=== PATIENT | male | born 1950 | race Caucasian/White ===

== ENCOUNTER → 2016-07-05 | Outpatient (CLI) | payer OTHER ==
[~2016-07-05] MED LIST: ADVIN25/60 INH; ALL300 PO; ALPR-411 PO; ASPEC325 PO; CYCL25CA5 PO; FRS/40 PO; LISI20TA3 PO; METO5TAB25 PO; MTR500 PO; PRD20 PO; SIMV40TA2 PO; TRIA1SPR4
[2016-07-05 13:33] LABS: HEMATOCRIT 34.9 % (42-52)
[2016-07-05 14:53] LABS: BLOOD UREA NITROGEN 64 mg/dl (7-18); BUN/CREATININE RATIO 21.9 (10-20); CALCIUM 8.5 mg/dl (8.5-10.1); CARBON DIOXIDE 18 mmol/L (21-32); CHLORIDE 113 mmol/L (98-107); GLUCOSE 130 mg/dl (70-99); POTASSIUM 4.2 mmol/L (3.5-5.1); SODIUM 144 mmol/L (136-145)
[2016-07-05 14:54] LABS: PHOSPHORUS 3.1 mg/dl (2.5-4.9)
[2016-07-05 19:00] LABS: URINE PROTIEN/CREAT RATIO 3.3 (0-0.2); URINE TOTAL PROTEIN 304.3 mg/dl (0-11.9)
== END | disposition home or self-care (01) ==
LOC: C.LABMFLN 09:59
PROVIDERS: ATTEND Internal Medicine
DX: N28.9 Disorder of kidney and ureter, unspecified (principal); N04.9 Nephrotic syndrome with unspecified morphologic changes

== ENCOUNTER → 2016-07-19 | Outpatient (CLI) | payer OTHER ==
[2016-07-19 17:48] LABS: HEMATOCRIT 35.9 % (42-52)
[2016-07-19 18:01] LABS: BLOOD UREA NITROGEN 69 mg/dl (7-18); BUN/CREATININE RATIO 19.6 (10-20); CALCIUM 8.5 mg/dl (8.5-10.1); CARBON DIOXIDE 20 mmol/L (21-32); CHLORIDE 112 mmol/L (98-107); GLUCOSE 127 mg/dl (70-99); POTASSIUM 4.6 mmol/L (3.5-5.1); SODIUM 144 mmol/L (136-145)
[2016-07-19 18:02] LABS: PHOSPHORUS 3.1 mg/dl (2.5-4.9)
== END | disposition home or self-care (01) ==
LOC: C.LABMFLN 10:12
PROVIDERS: ATTEND Internal Medicine
DX: N05.2 Unspecified nephritic syndrome with diffuse membranous glomerulonephritis (principal)

== ENCOUNTER → 2016-07-20 | Outpatient (CLI) | payer OTHER ==
[2016-07-20 13:53] LABS: URINE PROTIEN/CREAT RATIO 2.7 (0-0.2); URINE TOTAL PROTEIN 151.1 mg/dl (0-11.9)
== END | disposition home or self-care (01) ==
LOC: C.LABMFLN 09:20
PROVIDERS: ATTEND Internal Medicine
DX: N05.2 Unspecified nephritic syndrome with diffuse membranous glomerulonephritis (principal)

== ENCOUNTER → 2016-08-16 | Outpatient (CLI) | payer OTHER ==
[2016-08-16 13:33] LABS: HEMATOCRIT 36.4 % (42-52)
[2016-08-16 13:45] LABS: BLOOD UREA NITROGEN 56 mg/dl (7-18); BUN/CREATININE RATIO 20.8 (10-20); CALCIUM 8.7 mg/dl (8.5-10.1); CARBON DIOXIDE 20 mmol/L (21-32); CHLORIDE 115 mmol/L (98-107); GLUCOSE 125 mg/dl (70-99); POTASSIUM 4.8 mmol/L (3.5-5.1); SODIUM 146 mmol/L (136-145)
[2016-08-16 13:46] LABS: PHOSPHORUS 4.2 mg/dl (2.5-4.9)
[2016-08-16 13:48] LABS: URINE PROTIEN/CREAT RATIO 3.2 (0-0.2); URINE TOTAL PROTEIN 109.5 mg/dl (0-11.9)
== END | disposition home or self-care (01) ==
LOC: C.LABMFLN 12:01
PROVIDERS: ATTEND Internal Medicine
DX: N28.9 Disorder of kidney and ureter, unspecified (principal); N04.9 Nephrotic syndrome with unspecified morphologic changes

== ENCOUNTER → 2016-09-14 | Outpatient (CLI) | payer OTHER ==
[2016-09-14 13:40] LABS: HEMATOCRIT 37.6 % (42-52)
[2016-09-14 13:58] LABS: BLOOD UREA NITROGEN 62 mg/dl (7-18); BUN/CREATININE RATIO 20.5 (10-20); CALCIUM 8.7 mg/dl (8.5-10.1); CARBON DIOXIDE 22 mmol/L (21-32); CHLORIDE 114 mmol/L (98-107); GLUCOSE 85 mg/dl (70-99); POTASSIUM 5.2 mmol/L (3.5-5.1); SODIUM 144 mmol/L (136-145)
[2016-09-14 13:59] LABS: PHOSPHORUS 4.2 mg/dl (2.5-4.9)
[2016-09-14 14:15] LABS: URINE PROTIEN/CREAT RATIO 2.4 (0-0.2); URINE TOTAL PROTEIN 223.3 mg/dl (0-11.9)
== END | disposition home or self-care (01) ==
LOC: C.LABMFLN 11:17
PROVIDERS: ATTEND Internal Medicine
DX: N05.2 Unspecified nephritic syndrome with diffuse membranous glomerulonephritis (principal); N04.9 Nephrotic syndrome with unspecified morphologic changes; N28.9 Disorder of kidney and ureter, unspecified

== ENCOUNTER → 2016-10-18 | Outpatient (CLI) | payer OTHER ==
[2016-10-18 13:21] LABS: HEMATOCRIT 37.8 % (42-52)
[2016-10-18 14:32] LABS: BLOOD UREA NITROGEN 68 mg/dl (7-18); BUN/CREATININE RATIO 21.9 (10-20); CALCIUM 8.5 mg/dl (8.5-10.1); CARBON DIOXIDE 21 mmol/L (21-32); CHLORIDE 114 mmol/L (98-107); GLUCOSE 135 mg/dl (70-99); PHOSPHORUS 4.3 mg/dl (2.5-4.9); SODIUM 144 mmol/L (136-145)
[2016-10-18 14:49] LABS: URINE PROTIEN/CREAT RATIO 2.4 (0-0.2); URINE TOTAL PROTEIN 74.7 mg/dl (0-11.9)
== END | disposition home or self-care (01) ==
LOC: C.LABMFLN 10:35
PROVIDERS: ATTEND Physician Assistant
DX: N28.9 Disorder of kidney and ureter, unspecified (principal); N04.9 Nephrotic syndrome with unspecified morphologic changes

== ENCOUNTER → 2016-11-30 | Outpatient (CLI) | payer OTHER ==
[2016-11-30 13:53] LABS: URINE PROTIEN/CREAT RATIO 0.8 (0-0.2); URINE TOTAL PROTEIN 89.4 mg/dl (0-11.9)
[2016-11-30 15:45] LABS: BLOOD UREA NITROGEN 80 mg/dl (7-18); BUN/CREATININE RATIO 19.1 (10-20); CARBON DIOXIDE 20 mmol/L (21-32); CHLORIDE 111 mmol/L (98-107); GLUCOSE 113 mg/dl (70-99); PHOSPHORUS 5.2 mg/dl (2.5-4.9); POTASSIUM 5.9 mmol/L (3.5-5.1); SODIUM 142 mmol/L (136-145)
== END | disposition home or self-care (01) ==
LOC: C.LABMFLN 09:22
PROVIDERS: ATTEND Physician Assistant
DX: N05.2 Unspecified nephritic syndrome with diffuse membranous glomerulonephritis (principal); N28.9 Disorder of kidney and ureter, unspecified; N04.9 Nephrotic syndrome with unspecified morphologic changes

== ENCOUNTER → 2017-01-08 | Outpatient (CLI) | payer OTHER ==
[2017-01-08 13:35] LABS: HEMATOCRIT 33.7 % (42-52)
[2017-01-08 13:44] LABS: URINE PROTIEN/CREAT RATIO 2.4 (0-0.2); URINE TOTAL PROTEIN 99.4 mg/dl (0-11.9)
[2017-01-08 13:54] LABS: BLOOD UREA NITROGEN 62 mg/dl (7-18); BUN/CREATININE RATIO 19.8 (10-20); CALCIUM 8.7 mg/dl (8.5-10.1); CARBON DIOXIDE 19 mmol/L (21-32); CHLORIDE 115 mmol/L (98-107); GLUCOSE 147 mg/dl (70-99); PHOSPHORUS 4.3 mg/dl (2.5-4.9); POTASSIUM 5.9 mmol/L (3.5-5.1); SODIUM 142 mmol/L (136-145)
== END | disposition home or self-care (01) ==
LOC: C.LABMFLN 11:23
PROVIDERS: ATTEND Physician Assistant
DX: N28.9 Disorder of kidney and ureter, unspecified (principal)

== ENCOUNTER → 2017-02-06 | Outpatient (CLI) | payer OTHER ==
[2017-02-06 14:08] LABS: BLOOD UREA NITROGEN 68 mg/dl (7-18); BUN/CREATININE RATIO 21.4 (10-20); CALCIUM 8.7 mg/dl (8.5-10.1); CARBON DIOXIDE 20 mmol/L (21-32); CHLORIDE 115 mmol/L (98-107); GLUCOSE 95 mg/dl (70-99); PHOSPHORUS 3.7 mg/dl (2.5-4.9); POTASSIUM 5.4 mmol/L (3.5-5.1); SODIUM 142 mmol/L (136-145)
== END | disposition home or self-care (01) ==
LOC: C.LAB1850 10:45
PROVIDERS: ATTEND Physician Assistant
DX: N04.9 Nephrotic syndrome with unspecified morphologic changes (principal); N28.9 Disorder of kidney and ureter, unspecified

== ENCOUNTER → 2017-02-23 | Outpatient (CLI) | payer OTHER ==
[2017-02-23 14:25] LABS: HEMATOCRIT 33.9 % (42-52)
== END | disposition home or self-care (01) ==
LOC: C.LABMFLN 08:13
PROVIDERS: ATTEND Physician Assistant
DX: N28.9 Disorder of kidney and ureter, unspecified (principal)

== ENCOUNTER → 2017-03-19 | Outpatient (CLI) | payer OTHER ==
[2017-03-19 13:22] LABS: HEMATOCRIT 33.2 % (42-52)
[2017-03-19 13:31] LABS: URINE PROTIEN/CREAT RATIO 3.8 (0-0.2); URINE TOTAL PROTEIN 146.4 mg/dl (0-11.9)
[2017-03-19 13:56] LABS: BLOOD UREA NITROGEN 78 mg/dl (7-18); BUN/CREATININE RATIO 21.7 (10-20); CALCIUM 8.8 mg/dl (8.5-10.1); CARBON DIOXIDE 19 mmol/L (21-32); CHLORIDE 114 mmol/L (98-107); GLUCOSE 97 mg/dl (70-99); POTASSIUM 5.4 mmol/L (3.5-5.1); SODIUM 142 mmol/L (136-145)
[2017-03-19 13:58] LABS: PHOSPHORUS 4.8 mg/dl (2.5-4.9)
[2017-03-20 05:50] LABS: ESTIMATED AVERAGE GLUCOSE 123 mg/dl; HA1C FLAG Normal (Normal)
== END | disposition home or self-care (01) ==
LOC: C.LABMFLN 09:40
PROVIDERS: ATTEND Physician Assistant
DX: N05.2 Unspecified nephritic syndrome with diffuse membranous glomerulonephritis (principal); R73.9 Hyperglycemia, unspecified; N04.9 Nephrotic syndrome with unspecified morphologic changes; N28.9 Disorder of kidney and ureter, unspecified

== ENCOUNTER → 2017-05-16 | Outpatient (CLI) | payer OTHER ==
[2017-05-16 13:23] LABS: ALT/SGPT 47 U/L (12-78); AST/SGOT 33 U/L (15-37); BLOOD UREA NITROGEN 83 mg/dl (7-18); CALCIUM 8.2 mg/dl (8.5-10.1); CARBON DIOXIDE 19 mmol/L (21-32); CHLORIDE 112 mmol/L (98-107); CHOLESTEROL 195 mg/dl (0-200); CREATININE 3.95 mg/dl (0.60-1.40); GLUCOSE 99 mg/dl (70-99); POTASSIUM 5.5 mmol/L (3.5-5.1); SODIUM 140 mmol/L (136-145)
[2017-05-16 13:37] LABS: CHOLESTEROL/HDL RATIO 3.1; HDL CHOLESTEROL 62 mg/dl; LDL CHOLESTEROL CALCULATED 98 mg/dl; PHOSPHORUS 4.2 mg/dl (2.5-4.9); TRIGLYCERIDES 174 mg/dl (0-150); VERY LOW DENSITY LIPOPROT CALC 35 mg/dl
== END | disposition home or self-care (01) ==
LOC: C.LABMFLN 09:15
PROVIDERS: ATTEND Physician Assistant
DX: N05.2 Unspecified nephritic syndrome with diffuse membranous glomerulonephritis (principal); E78.00 Pure hypercholesterolemia, unspecified

== ENCOUNTER → 2017-06-06 | Outpatient (CLI) | payer OTHER | END | disposition home or self-care (01) | LOC: C.LABMFLN 11:37 | PROVIDERS: ATTEND Physician Assistant | DX: N04.9 Nephrotic syndrome with unspecified morphologic changes (principal) ==

== ENCOUNTER → 2017-06-11 | Outpatient (CLI) | payer OTHER ==
[2017-06-11 18:49] LABS: TOTAL IRON BINDING CAPACITY 265 mcg/dl (250-450)
== END | disposition home or self-care (01) ==
LOC: C.LABMFLN 12:04
PROVIDERS: ATTEND Internal Medicine
DX: N05.2 Unspecified nephritic syndrome with diffuse membranous glomerulonephritis (principal); N28.9 Disorder of kidney and ureter, unspecified

== ENCOUNTER → 2017-07-17 | Outpatient (CLI) | payer OTHER ==
[2017-07-17 18:44] LABS: ALBUMIN 2.5 gm/dl (3.4-5.0); BLOOD UREA NITROGEN 83 mg/dl (7-18); CALCIUM 7.9 mg/dl (8.5-10.1); CARBON DIOXIDE 17 mmol/L (21-32); GLUCOSE 130 mg/dl (70-99); PHOSPHORUS 4.9 mg/dl (2.5-4.9); POTASSIUM 5.1 mmol/L (3.5-5.1); SODIUM 140 mmol/L (136-145)
== END | disposition home or self-care (01) ==
LOC: C.LABMFLN 11:23
PROVIDERS: ATTEND Physician Assistant
DX: N28.9 Disorder of kidney and ureter, unspecified (principal)

== ENCOUNTER → 2017-08-28 | Outpatient (CLI) | payer OTHER ==
--- NOTE | 2017-08-28 12:03 | DIAGNOSTIC IMAGING REPORT ---
CHEST 2 VIEWS ROUTINE CLINICAL HISTORY: Hypercholesterolemia COMPARISON STUDY: 04/20/2016 FINDINGS: The heart is mildly enlarged. There is no failure. There is no focal pulmonary consolidation. There are no pleural effusions. There is mild eventration of the right hemidiaphragm.[ IMPRESSION: No active disease in the chest. Electronically signed by: Eugenio Daugherty M.D. 08/28/2017 12:02 PM Dictated Date/Time: 08/28/2017 12:01 PM
[2017-08-28 13:22] LABS: HEMATOCRIT 35.1 % (42-52); HEMOGLOBIN 10.9 g/dL (14.0-18.0)
[2017-08-28 14:06] LABS: ALBUMIN 2.6 gm/dl (3.4-5.0); BLOOD UREA NITROGEN 85 mg/dl (7-18); CALCIUM 8.4 mg/dl (8.5-10.1); CARBON DIOXIDE 17 mmol/L (21-32); GLUCOSE 87 mg/dl (70-99); PHOSPHORUS 6.1 mg/dl (2.5-4.9); POTASSIUM 4.3 mmol/L (3.5-5.1); SODIUM 140 mmol/L (136-145)
== END | disposition home or self-care (01) ==
LOC: C.LAB1850 11:45
PROVIDERS: ATTEND Internal Medicine
DX: E78.00 Pure hypercholesterolemia, unspecified (principal); N28.9 Disorder of kidney and ureter, unspecified; N04.9 Nephrotic syndrome with unspecified morphologic changes

== ENCOUNTER → 2017-10-11 | Outpatient (CLI) | payer OTHER ==
[2017-10-11 17:19] LABS: ALBUMIN 2.3 gm/dl (3.4-5.0); BLOOD UREA NITROGEN 76 mg/dl (7-18); CALCIUM 7.5 mg/dl (8.5-10.1); CARBON DIOXIDE 18 mmol/L (21-32); CREATININE 6.58 mg/dl (0.60-1.40); GLUCOSE 122 mg/dl (70-99); POTASSIUM 4.9 mmol/L (3.5-5.1); SODIUM 140 mmol/L (136-145)
== END | disposition home or self-care (01) ==
LOC: C.LAB1850 15:33
PROVIDERS: ATTEND Internal Medicine
DX: E78.00 Pure hypercholesterolemia, unspecified (principal)

== ENCOUNTER → 2017-11-06 | Outpatient (CLI) | payer OTHER ==
[2017-11-06 19:49] LABS: ALBUMIN 2.5 gm/dl (3.4-5.0); BLOOD UREA NITROGEN 104 mg/dl (7-18); CALCIUM 7.2 mg/dl (8.5-10.1); CARBON DIOXIDE 18 mmol/L (21-32); CREATININE 6.88 mg/dl (0.60-1.40); GLUCOSE 101 mg/dl (70-99); POTASSIUM 5.3 mmol/L (3.5-5.1); SODIUM 140 mmol/L (136-145)
[2017-11-06 20:43] LABS: PHOSPHORUS 9.9 mg/dl (2.5-4.9)
== END | disposition home or self-care (01) ==
LOC: C.LAB1850 15:23
PROVIDERS: ATTEND Internal Medicine
DX: E78.00 Pure hypercholesterolemia, unspecified (principal)

== ENCOUNTER → 2018-01-24 | Outpatient (CLI) | payer OTHER ==
[~2018-01-24] MED LIST changes: -ALPR-411 PO; -ASPEC325 PO; +ASPI325T4 PO; +CALC500C3 PO; -FRS/40 PO; +LSX80 PO; +METO10TA6 PO; -METO5TAB25 PO; -MTR500 PO; +OXYC-57 PO; -PRD20 PO; +PRED-301 PO; +PRVHFAIN INH; -TRIA1SPR4
--- NOTE | 2018-01-24 12:24 | DIAGNOSTIC IMAGING REPORT ---
CHEST 2 VIEWS ROUTINE CLINICAL HISTORY: pat preoperative evaluation COMPARISON STUDY: 08/28/2017 FINDINGS: The bones soft tissues and hemidiaphragms are normal. The cardiomediastinal silhouette is normal. The lungs are clear. The pulmonary vasculature is normal. IMPRESSION: Negative chest. The above report was generated using voice recognition software. It may contain grammatical, syntax or spelling errors. Electronically signed by: Sal Oconnor M.D. 01/24/2018 12:22 PM Dictated Date/Time: 01/24/2018 12:22 PM
[2018-01-24 13:09] LABS: BASO % 0.5 %; EOS % 0.7 %; HEMATOCRIT 38.5 % (42-52); HEMOGLOBIN 11.6 g/dL (14.0-18.0); LYMPH % 10.9 %; MEAN CELL VOLUME 88.7 fL (80-100); MEAN CORPUSCULAR HEMOGLOBIN 26.7 pg (25-34); MEAN CORPUSCULAR HGB CONC 30.1 g/dl (32-36); MONO % 8.4 %; NEUT % 79.3 %; PLATELET COUNT 348 K/uL (130-400); RED CELL DISTRIBUTION WIDTH CV 19.9 % (11.5-14.5); RED CELL DISTRIBUTION WIDTH SD 64.9 fL (36.4-46.3); WHITE BLOOD COUNT 9.99 K/uL (4.8-10.8)
[2018-01-24 13:10] LABS: BASO ABS # 0.05 K/uL (0-0.2); EOS ABS # 0.07 K/uL (0-0.5); IG# 0.02 K/uL (0.00-0.02); LYMPH ABS # 1.09 K/uL (1.2-3.4); MONO ABS # 0.84 K/uL (0.11-0.59); NEUT ABS # 7.92 K/uL (1.4-6.5)
[2018-01-24 13:16] LABS: INR 0.9 (0.9-1.1)
[2018-01-24 13:34] LABS: BLOOD UREA NITROGEN 90 mg/dl (7-18); CALCIUM 7.8 mg/dl (8.5-10.1); CARBON DIOXIDE 15 mmol/L (21-32); CREATININE 7.48 mg/dl (0.60-1.40); GLUCOSE 95 mg/dl (70-99); POTASSIUM 4.7 mmol/L (3.5-5.1); SODIUM 138 mmol/L (136-145)
== END | disposition home or self-care (01) ==
LOC: C.CPL 11:18
PROVIDERS: ATTEND Surgery Vascular Surgery
DX: Z01.810 Encounter for preprocedural cardiovascular examination (principal); Z01.811 Encounter for preprocedural respiratory examination; Z01.812 Encounter for preprocedural laboratory examination; R00.0 Tachycardia, unspecified

== ENCOUNTER → 2018-01-30 | Day surgery (SDC) | payer OTHER ==
[2018-01-23 15:19] VITALS: BMI 38.0
[2018-01-24 11:36] VITALS: BMI 39.0
--- NOTE | 2018-01-24 11:50 | PAT Medication Instructions ---
Service Date Jan 24, 2018. Current Home Medication List Albuterol (Ventolin Hfa), 2 PUFFS INH Q4H PRN for SOB/Wheezing Allopurinol (Allopurinol), 1 TAB PO QAM Aspirin (Aspirin), 325 MG PO QAM Calcium Carbonate (Tums), 2 TABS PO ACHS Cyclosporine (Neoral), 25 MG PO QAM Fluticasone Prop/Salmeterol (Advair Diskus 250/50 60 Dose), 1 PUFF INH BID Furosemide (Furosemide), 1 TAB PO QAM Lisinopril (Prinivil), 20 MG PO QAM Metolazone (Zaroxolyn), 10 MG PO QAM Prednisone (Prednisone), 5 MG PO QAM Simvastatin (Zocor), 40 MG PO QPM Medication Instructions For Your Scheduled Surgery - Hold the following medications the morning of surgery: Calcium Carbonate (Tums), 2 TABS PO ACHS Furosemide (Furosemide), 1 TAB PO QAM Lisinopril (Prinivil), 20 MG PO QAM Metolazone (Zaroxolyn), 10 MG PO QAM - Take the following medications the morning of surgery with a sip of water: Albuterol (Ventolin Hfa), 2 PUFFS INH Q4H PRN for SOB/Wheezing (if needed, and bring with you to the hospital) Allopurinol (Allopurinol), 1 TAB PO QAM Aspirin (Aspirin), 325 MG PO QAM (OK per surgeon) Cyclosporine (Neoral), 25 MG PO QAM Fluticasone Prop/Salmeterol (Advair Diskus 250/50 60 Dose), 1 PUFF INH BID Prednisone (Prednisone), 5 MG PO QAM - Take the following medications as scheduled the night before surgery: Albuterol (Ventolin Hfa), 2 PUFFS INH Q4H PRN for SOB/Wheezing (if needed) Fluticasone Prop/Salmeterol (Advair Diskus 250/50 60 Dose), 1 PUFF INH BID Simvastatin (Zocor), 40 MG PO QPM If you have any questions please call us at [phone] or [phone] or [phone]
[~2018-01-30] VITALS: Ht 167.6 cm; Wt 108.9 kg
[~2018-01-30] MED LIST changes: +ATROPINE SULFATE 0.1 MG/ML 5ML SYR IV PRN; +BUPIVACAINE/EPINEPHRINE 0.5% MPF 1:200,000 30 ML VIAL ONE; +CEFAZOLIN 2000MG IV PUSH 15 ML IV SCH; +EpHEDrine SULFATE INJ 50 MG/ML AMP IV PRN; +FENTANYL CITRATE INJ 50 MCG/1 ML 2 ML VIAL ONE; +GELATIN SPONGE SZ 100 ONE; +HEPARIN SOD (PORCINE) 1000 UNIT/ML 10 ML VIAL ONE; +HYDROCORTISONE IV 100 MG in SYRINGE 0 ML IV SCH; +HYDROCORTISONE SOD SUCCINATE 100 MG/2 ML VIAL IV SCH; +LIDOCAINE HCL 1% 20 ML VIAL ONE; +LIDOCAINE HCL 2% 2 ML VIAL (20MG/ML) ONE; +MIDAZOLAM HCL 1 MG/ML 2ML VIAL ONE; +PROPOFOL IV EMULSION 10 MG/ML 20 ML VIAL ONE; +SODIUM CHLORIDE 0.9% 1000ML 1,000 ML IV SCH; +THROMBIN FOR SOLN 20000 UNIT KIT ONE
[2018-01-30 05:40] VITALS: BP 172/92; PULSE 104; TEMP 36.8; O2SAT 92; Ht 167.6 cm; Wt 108.9 kg
--- NOTE | 2018-01-30 06:15 | History and Physical ---
History & Physical Date of Service Jan 30, 2018. History & Physical January 22, [address] Jain: I had the pleasure of seeing Mr. Wilson in the office for a consultation today regarding creation of an arteriovenous fistula for hemodialysis. The patient states that he has had kidney disease, which has worsened over time to the point that his advertising sales associate recommended that he consider undergoing AV fistula creation for likely a future need for hemodialysis. The patient denies any actual complaints at this time. Specifically, he denies headaches, fevers, chills, dizziness, chest pain, shortness of breath, abdominal pain, nausea, vomiting, diarrhea, constipation, dysuria, hematuria, rest pain, claudication, nonhealing wounds or ulcers or other concerns. He did undergo vein mapping ultrasound of his bilateral upper extremities which demonstrates a usable left distal forearm cephalic vein for AV fistula creation. The patient is right- handed. THE PATIENT'S ALLERGIES INCLUDE NO KNOWN ALLERGIES. His home medications are reconciled I the chart and include the following: Advair Diskus, albuterol, allopurinol, alprazolam, aspirin, cyclosporine, furosemide, lisinopril, metolazone, prednisone, Procrit, and simvastatin. His past medical history is positive for asthma, basal cell carcinoma, gout, hypercholesterolemia, hypertension, end-stage renal disease, anemia, chronic obstructive pulmonary disease. His surgical history is positive for electrodesiccation with curettage, shave biopsy of skin, hernia repair, another shave biopsy of skin and a splenectomy. His family history is positive for coronary artery bypass grafting, coronary artery disease, NH and hypertension in his mother. His social history is positive for a past history of tobacco use. The patient quit smoking 3 years ago. He denies any regular alcohol or drug use. Review of systems is negative for fatigue, fevers, sweats, weight loss, abnormal moles or rashes, vision changes or photophobia, ear pain, sinus problems, sore throat, cough, shortness of breath, hemoptysis or wheezing, chest pain, palpitations or syncope. He does admit to edema of his bilateral lower extremities as well as his abdomen, which he states has been the same for a period of time. He denies abdominal pain, nausea, vomiting, diarrhea, constipation, dysuria, hematuria, rest pain, claudication, muscle weakness, headaches, dizziness, numbness or seizures. On physical exam, his vital signs today were as follows: Blood pressure 150/94 in the right arm, 146/96 in the left, heart rate of 115, oxygen 94% on room air. The patient is 170.18 cm tall and weighs 108 kilograms. Constitutional: In general, patient is a chronically ill-appearing, overweight, middle-aged male in no acute distress. He ambulates without assistance and is active, alert and oriented x4 with normal recent and remote memory. Head is normocephalic and atraumatic. Eyes are EOMI. ENMT demonstrates no hearing loss , rhinorrhea or pharyngeal erythema. Neck is supple, nontender with a midline trachea without masses or crepitus. Lung exam demonstrates no dyspnea. They are decreased, but clear bilaterally. Cardiovascular exam demonstrates nondisplaced apical impulse with a regular rate and rhythm. He does have a systolic ejection murmur. His peripheral pulses are full and equal in all extremities unless otherwise noted. Specifically, they are normal in his carotid, brachial and left radial pulse. His right radial pulse is nonpalpable. His ulnar is +2. His femoral pulses are +2. His lower extremity distal pulses are +2. He has brisk capillary refill, no sign of distal ischemia. He does have +2 edema of his bilateral lower legs and his abdomen is somewhat protuberant due to body habitus as well as some ascites. His abdomen demonstrates normoactive bowel sounds in all 4 quadrants without guarding or rebound. Bilateral upper extremities demonstrate no cyanosis, edema, clubbing, varicosities or ulcers. His bilateral extremities demonstrate no cyanosis, varicosities or ulcerations. Neurologically, he has grossly intact cranial nerves and grossly intact sensation. ASSESSMENT AND PLAN: End-stage renal disease. PLAN: At this time, after discussion with Dr. Acuna who reviewed the patient' s ultrasound is to recommend that the patient consider undergoing a left forearm AV fistula creation utilizing his cephalic vein. The procedure, risks, benefits and alternatives were discussed with the patient and his daughter was present as well. The patient expressed understanding and agreement to proceed after discussing the consent with Dr. Acuna. The patient was advised to call with any other questions if he has them. Thank you for allowing us to participate in the care of your patient.
[2018-01-30 06:22] LABS: CALCIUM 7.7 mg/dl (8.5-10.1); CREATININE 7.4 mg/dl (0.60-1.40); POTASSIUM 5.2 mmol/L (3.5-5.1)
--- NOTE | 2018-01-30 07:18 | History & Physical Bridge Note ---
H&P Re-Evaluation Bridge Note: I have examined the patient, reviewed the History & Physical and in the interval since the performance of the History & Physical I have noted the following changes of clinical significance: No changes noted Patient for a left forearm av fistula creation. I have discussed the risks options and benefits of the procedure with the patient. The patient understands the risks options and benefits and agrees to the procedure.
--- NOTE | 2018-01-30 08:28 | [facility] Post Operative Brief Note ---
Immediate Operative Summary Operative Date Jan 30, 2018. Pre-Operative Diagnosis End Stage Renal Disease Post-Operative Diagnosis End Stage Renal Disease Procedure(s) Performed Left Forearm Cephalic Vein Arteriovenous Fistula Creation Surgeon Dr. Julia Acuna Lathe Mechanic Surgeon(s) Marin Cuellar PA-C Estimated Blood Loss 10mL Findings Consistent with Post-Op Diagnosis Specimens none per surgeon Anesthesia Type MAC Complication(s) none Disposition Accompanied Pt To Recover: no Disposition: Recovery Room / PACU
--- NOTE | 2018-01-30 08:39 | Discharge Instructions ---
Discharge Instructions Date of Service Jan 30, 2018. Visit Reason for Visit: End Stage Renal Disease Discharge Discharge Diagnosis / Problem: End-stage renal disease Discharge Goals Goal(s): Therapeutic intervention Activity Recommendations Activity Limitations: per Instructions/Follow-up section Anesthesia . Post Anesthesia Instructions: If you have had General Anesthesia or IV Sedation: * Do not drive today. * Resume driving when surgeon permits. * Do not make important decisions or sign legal documents today. * Call surgeon for: 1. Temperature elevations greater than 101 degrees F. 2. Uncontrollable pain. 3. Excessive bleeding. 4. Persistent nausea and vomiting. 5. Medication intolerance (nausea, vomiting or rash). * For nausea and vomiting use only clear liquids such as: tea, soda, bouillon until nausea subsides, then gradually increase diet as tolerated. * If you have any concerns or questions, call your surgeon's office. If physician is unavailable and it is an emergency, call 911 or go to the nearest emergency room. . Instructions / Follow-Up Instructions / Follow-Up Call [phone] to schedule a follow up appointment if one not already scheduled. ACTIVITY RECOMMENDATIONS: See Above SPECIAL CARE INSTRUCTIONS: Call your doctor if: * Temperature above 101 degrees * Pain not relieved by pain medicine ordered * There is increased drainage or redness from any incision * You have any unanswered questions or concerns. Diet Recommendations Recommended Home Diet: resume previous diet Procedures Procedures Performed: Left Forearm Cephalic Vein Arteriovenous Fistula Creation Pending Studies Studies pending at discharge: no Medical Emergencies . Who to Call and When: Medical Emergencies: If at any time you feel your situation is an emergency, please call 911 immediately. . Non-Emergent Contact Non-Emergency issues call your: Surgeon . . "Provider Documentation" section prepared by Flo Acuna. .
--- NOTE | 2018-01-30 08:43 | [facility] Operative Report ---
Operative Report Operative Date Jan 30, 2018. Pre-Operative Diagnosis End Stage Renal Disease Post-Operative Diagnosis End Stage Renal Disease Procedure(s) Performed Left Forearm Cephalic Vein Arteriovenous Fistula Creation Surgeon Dr. Julia Acuna Engineering Inspection Assistant Surgeon(s) Marin Cuellar PA-C Estimated Blood Loss 10mL Findings Good thrill in the fistula post creation. Specimens none per surgeon Anesthesia Type MAC Complication(s) none Disposition no Recovery Room / PACU Indications This is a 67-year-old white male with end-stage renal disease. He is in need of a permanent access creation. Left cephalic vein forearm fistula was recommended.I have discussed the risks options and benefits of the procedure with the patient. The patient understands the risks options and benefits and agrees to the procedure. Description of Procedure The patient was taken to the operating room and placed in the supine position. Left arm was prepped and draped in a sterile manner. Ultrasound was used prior to prepping to locate the end of the cephalic vein. It was just above the usual incision for a wrist cephalic vein fistula. This area was then anesthetized once prepped and draped. The longitudinal incision was then made midway between the cephalic vein and the radial artery. The cephalic vein was identified it was good caliber approximately 4 mm in size. The radial artery was then isolated. It was also of good size approximately 3 mm. The cephalic vein was then ligated distally and divided. Radial artery was clamped proximal distally. A longitudinal arteriotomy was then made. No plaque was seen within the radial artery. The cephalic vein was gently dilated. The end was then beveled and an end-to-side anastomosis was accomplished using a 7-0 Prolene suture in the usual vascular fashion. Once the clamps removed there was good flow however I do not feel a good thrill. There appeared to be an area of narrowing approximately 3 fingerbreadths beyond the anastomosis. The cephalic vein was then clamped proximal distally with bulldogs. A small venotomy was made and a #3 Joanna was used to dilate this area. Once this was done good backbleeding was seen. The small venotomy was closed with 6-0 Prolene suture. A good palpable thrill was then felt once the clamps removed. Adequate hemostasis was noted in the wound. Wound was then closed in the usual fashion using a running 3-0 Vicryl suture for the subcutaneous layer and a running 4-0 subcuticular suture for the skin edges. Dermabond was used for dressing. The patient left the operation room in satisfactory condition and tolerated the procedure well. All needle and sponge counts were correct at the end of the procedure. Mahsa Chakraborty Pac assisted due to lack of resident availability and was necessary for positioning, draping, retraction, wound closure deep layers, subcutaneous tissue, and skin closure and was necessary for assisting with the case. I attest to the content of the Intraoperative Record and any orders documented therein. Any exceptions are noted below.
--- NOTE | 2018-01-30 09:04 | Anesthesiology Progress Note ---
Anesthesia Post Op Note Date & Time Jan 30, 2018 at 09:03 Vital Signs Pain Intensity: 0 Vital Signs Past 12 Hours Date Time Temp Pulse Resp B/P (MAP) Pulse Ox O2 Delivery O2 Flow Rate FiO2 01/30/18 08:50 16 161/93 93 Room Air 01/30/18 08:44 36.5 96 16 159/98 94 Room Air 01/30/18 05:40 36.8 104 18 172/92 (118) 92 Room Air Notes Mental Status: alert / awake / arousable, participated in evaluation Pt Amnestic to Procedure: Yes Nausea / Vomiting: adequately controlled Pain: adequately controlled Airway Patency, RR, SpO2: stable & adequate BP & HR: stable & adequate Hydration State: stable & adequate Anesthetic Complications: no major complications apparent
[2018-01-30 09:10] VITALS: BP 161/95; PULSE 99; TEMP 36.9; O2SAT 92
[2018-01-30 09:45] VITALS: BP 170/84; PULSE 104; O2SAT 93
== END | disposition home or self-care (01) ==
LOC: C.ACU 04:59
PROVIDERS: ATTEND Surgery Vascular Surgery
DX: N18.6 End stage renal disease (principal); J44.9 Chronic obstructive pulmonary disease, unspecified; I10 Essential (primary) hypertension; E78.5 Hyperlipidemia, unspecified; Z86.718 Personal history of other venous thrombosis and embolism; K21.9 Gastro-esophageal reflux disease without esophagitis; M19.90 Unspecified osteoarthritis, unspecified site; E66.9 Obesity, unspecified; M10.9 Gout, unspecified

== ENCOUNTER → 2018-02-13 | Outpatient (CLI) | payer OTHER ==
[~2018-02-13] MED LIST changes: -ATROPINE SULFATE 0.1 MG/ML 5ML SYR IV PRN; -BUPIVACAINE/EPINEPHRINE 0.5% MPF 1:200,000 30 ML VIAL ONE; -CEFAZOLIN 2000MG IV PUSH 15 ML IV SCH; -EpHEDrine SULFATE INJ 50 MG/ML AMP IV PRN; -FENTANYL CITRATE INJ 50 MCG/1 ML 2 ML VIAL ONE; -GELATIN SPONGE SZ 100 ONE; -HEPARIN SOD (PORCINE) 1000 UNIT/ML 10 ML VIAL ONE; -HYDROCORTISONE IV 100 MG in SYRINGE 0 ML IV SCH; -HYDROCORTISONE SOD SUCCINATE 100 MG/2 ML VIAL IV SCH; -LIDOCAINE HCL 1% 20 ML VIAL ONE; -LIDOCAINE HCL 2% 2 ML VIAL (20MG/ML) ONE; -MIDAZOLAM HCL 1 MG/ML 2ML VIAL ONE; -PROPOFOL IV EMULSION 10 MG/ML 20 ML VIAL ONE; -SODIUM CHLORIDE 0.9% 1000ML 1,000 ML IV SCH; -THROMBIN FOR SOLN 20000 UNIT KIT ONE
[2018-02-13 13:21] LABS: HEMATOCRIT 34.9 % (42-52); HEMOGLOBIN 10.4 g/dL (14.0-18.0)
== END | disposition home or self-care (01) ==
LOC: C.LAB1850 12:26
PROVIDERS: ATTEND Internal Medicine
DX: N28.9 Disorder of kidney and ureter, unspecified (principal); N04.9 Nephrotic syndrome with unspecified morphologic changes